=== PATIENT | male | born 1960 | race African-American/Black ===

== ENCOUNTER 2021-03-14 01:00 | Emergency (ER) | payer OTHER ==
[~2021-03-14] VITALS: Ht 188 cm; Wt 81.6 kg
[2021-03-14 01:09] VITALS: BP 148/87
[2021-03-14] MEDS ORDERED: KETOROLAC TROMETHAMINE INJ 60 MG/2 ML VIAL IM ONE ×2 (01:30→01:33)
== END 2021-03-14 05:34 | disposition home or self-care (01) ==
LOC: ER 01:03
DX: M54.5 Low back pain (principal); I10 Essential (primary) hypertension; Z98.890 Other specified postprocedural states
CPT/HCPCS: 96372; 99283; J1885